=== PATIENT | female | born 1995 | race Hispanic/Latino ===

== ENCOUNTER 2020-01-04 05:36 | Emergency (ER) | payer SELFPAY ==
--- NOTE | 2020-01-04 07:05 | ER ---
Nurse's Notes [facility] Name: Citlaly Vega Age: 24 yrs Sex: Female : 1995 Arrival Date: 01/04/2020 Time: 05:48 Bed 5 Private MD: Diagnosis: Viral infection, unspecified Presentation: 01/03 06:09 Chief complaint: Patient states: fever, cough, sore throat and diarrhea x 1 week. aa1 Coronavirus screen: The patient has NOT traveled to a country currently being monitored by the [facility] within the last 14 days. Proceed with normal triage procedures. Ebola Screen: Patient denies exposure to infectious person. Patient denies travel to an Ebola-affected area in the 21 days before illness onset. Initial Sepsis Screen: Does the patient meet any 2 criteria? No. Patient's initial sepsis screen is negative. Does the patient have a suspected source of infection? No. Patient's initial sepsis screen is negative. Risk Assessment: Do you want to hurt yourself or someone else? Patient reports no desire to harm self or others. Care prior to arrival: None. Transition of care: patient was not received from another setting of care. 06:09 Method Of Arrival: Ambulatory aa1 06:09 Acuity: ROHIT 4 aa1 Triage Assessment: 06:11 General: Appears in no apparent distress. comfortable, Behavior is calm, cooperative, aa1 appropriate for age. 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 - Social history:: Smoking status: Patient denies any tobacco usage or history of. Screenin:16 Abuse screen: Denies threats or abuse. Nutritional screening: No deficits noted. ea Tuberculosis screening: No symptoms or risk factors identified. Fall Risk None identified. Assessment: 06:15 General: Appears in no apparent distress. Behavior is calm, cooperative, appropriate ea for age. Pain: Complains of pain in left aspect of posterior pharynx and right aspect of posterior pharynx. Neuro: Level of Consciousness is awake, alert, obeys commands, Oriented to person, place, time. Respiratory: Airway is patent Respiratory effort is even, unlabored, Respiratory pattern is regular, symmetrical. GI: Abdomen is non-distended, Parent/caregiver reports the patient having diarrhea. Derm: Skin is pink, warm \T\ dry. 07:10 Reassessment: Patient and/or family updated on plan of care and expected duration. Pain ea level reassessed. Patient is alert, oriented x 3, equal unlabored respirations, skin warm/dry/pink. Discharge instruction given to patient, verbalized the understanding of instruction. Pt left ED ambulatory accompanied by family. Vital Signs: 06:09 BP 101 / 74; Pulse 61; Resp 18; Temp 97.9; Pulse Ox 100% on R/A; Weight 52.16 kg; aa1 Height 5 ft. 0 in. (152.40 cm); Pain 7/10; 06:09 Body Mass Index 22.46 (52.16 kg, 152.40 cm) aa1 ED Course: 05:48 Patient arrived in ED. es 06:06 Chandler Tompkins PA is PHCP. jr8 06:06 Moreno Shea MD is Attending Physician. jr8 06:10 Triage completed. aa1 06:11 Patient placed in an exam room, on a stretcher. aa1 06:15 Milla Hilario RN is Primary Nurse. ea 06:16 Patient has correct armband on for positive identification. Bed in low position. ea 07:08 No provider procedures requiring assistance completed. Patient did not have IV access ea during this emergency room visit. Administered Medications: No medications were administered Outcome: 07:05 Discharge ordered by . jr8 07:11 Discharged to home ambulatory, with family. ea 07:11 Condition: stable 07:11 Discharge instructions given to patient, Instructed on discharge instructions, follow up and referral plans. medication usage, Demonstrated understanding of instructions, follow-up care, medications, Prescriptions given X 2. 07:11 Patient left the ED. ea Signatures: Adelina Trivedi, RN RN aa1 Mariah Vieira Chandler Tompkins PA PA jr8 Milla Hilario RN RN ea
--- NOTE | 2020-01-04 07:05 | EDPHYS ---
Physician Documentation [facility] Name: Citlaly Vega Age: 24 yrs Sex: Female : 1995 Arrival Date: 01/04/2020 Time: 05:48 Bed 5 Private MD: ED Physician Moreno Shea HPI: 01/03 06:39 This 24 yrs old Female presents to ER via Ambulatory with complaints of Cough, jr8 Fever, Diarrhea, Chest Congestion. 06:39 The patient or guardian reports cough, that is intermittent, described as mild, with no jr8 sputum. Onset: The symptoms/episode began/occurred gradually, 1 week(s) ago. Severity of symptoms: At their worst the symptoms were mild, in the emergency department the symptoms are unchanged. Modifying factors: The symptoms are alleviated by nothing, the symptoms are aggravated by nothing. Associated signs and symptoms: Pertinent positives: rhinorrhea, sore throat. The patient has not experienced similar symptoms in the past. The patient has not recently seen a physician. 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 - Social history:: Smoking status: Patient denies any tobacco usage or history of. ROS: 06:39 Eyes: Negative for injury, pain, redness, and discharge, Neck: Negative for injury, jr8 pain, and swelling, Cardiovascular: Negative for chest pain, palpitations, and edema, Abdomen/GI: Negative for abdominal pain, nausea, vomiting, diarrhea, and constipation, Back: Negative for injury and pain, MS/Extremity: Negative for injury and deformity, Skin: Negative for injury, rash, and discoloration, Neuro: Negative for headache, weakness, numbness, tingling, and seizure. 06:39 Constitutional: Positive for fever. 06:39 ENT: Positive for rhinorrhea, sinus congestion, sore throat. 06:39 Respiratory: Positive for cough, with no reported sputum, Negative for shortness of breath, sputum production, wheezing. Exam: 06:39 Eyes: Pupils equal round and reactive to light, extra-ocular motions intact. Lids and jr8 lashes normal. Conjunctiva and sclera are non-icteric and not injected. Cornea within normal limits. Periorbital areas with no swelling, redness, or edema. Neck: Trachea midline, no thyromegaly or masses palpated, and no cervical lymphadenopathy. Supple, full range of motion without nuchal rigidity, or vertebral point tenderness. No Meningismus. Cardiovascular: Regular rate and rhythm with a normal S1 and S2. No gallops, murmurs, or rubs. Normal PMI, no JVD. No pulse deficits. Respiratory: Lungs have equal breath sounds bilaterally, clear to auscultation and percussion. No rales, rhonchi or wheezes noted. No increased work of breathing, no retractions or nasal flaring. Abdomen/GI: Soft, non-tender, with normal bowel sounds. No distension or tympany. No guarding or rebound. No evidence of tenderness throughout. Back: No spinal tenderness. No costovertebral tenderness. Full range of motion. Skin: Warm, dry with normal turgor. Normal color with no rashes, no lesions, and no evidence of cellulitis. MS/ Extremity: Pulses equal, no cyanosis. Neurovascular intact. Full, normal range of motion. Neuro: Awake and alert, GCS 15, oriented to person, place, time, and situation. Cranial nerves II-XII grossly intact. Motor strength 5/5 in all extremities. Sensory grossly intact. Cerebellar exam normal. Normal gait. 06:39 ENT: Exam is negative for earache, ear discharge, TM abnormalities, nasal discharge, Mouth: Lips: moist, Oral mucosa: pink and intact, moist, Gums: pink, Tongue: is moist, Posterior pharynx: Airway: patent, Tonsils: with erythema, no exudate, no ulcerations, Uvula: midline, non-edematous, no erythema, swelling, is not appreciated, erythema, that is mild. Vital Signs: 06:09 BP 101 / 74; Pulse 61; Resp 18; Temp 97.9; Pulse Ox 100% on R/A; Weight 52.16 kg; aa1 Height 5 ft. 0 in. (152.40 cm); Pain 7/10; 06:09 Body Mass Index 22.46 (52.16 kg, 152.40 cm) aa1 MDM: 06:07 Patient medically screened. jr8 06:39 Data reviewed: vital signs, nurses notes, lab test result(s). Data interpreted: Pulse jr8 oximetry: on room air is 100 %. Interpretation: normal. Counseling: I had a detailed discussion with the patient and/or guardian regarding: the historical points, exam findings, and any diagnostic results supporting the discharge/admit diagnosis, lab results, the need for outpatient follow up, a family practitioner, to return to the emergency department if symptoms worsen or persist or if there are any questions or concerns that arise at home. 01/03 06:17 Order name: Strep; Complete Time: 07:04 ea 01/03 06:57 Order name: Throat Culture EDMS Administered Medications: No medications were administered Disposition: 01/04 04:29 Co-signature as Attending Physician, Moreno Shea MD I agree with the assessment and tw4 plan of care. Disposition: 01/04/20 07:05 Discharged to Home. Impression: Viral infection, unspecified. - Condition is Stable. - Discharge Instructions: Antibiotic Resistance, Viral Respiratory Infection. - Prescriptions for Prednisone 20 mg Oral Tablet - take 1 tablet by ORAL route once daily for 5 days; 5 tablet. Tessalon Perles 100 mg Oral Capsule - take 1 capsule by ORAL route every 8 hours As needed; 15 capsule. - Medication Reconciliation Form, Thank You Letter, Antibiotic Education, Prescription Opioid Use form. - Follow up: Private Physician; When: 5 - 6 days; Reason: Recheck today's complaints, Continuance of care, Re-evaluation by your physician. - Problem is new. - Symptoms have improved. Signatures: Dispatcher [employer] Adelina Trivedi RN RN aa1 Chandler Tompkins PA PA jr8 Milla Hilario RN RN ea Wadley, Terrence, MD MD tw4 Corrections: (The following items were deleted from the chart) 01/03 07:11 07:05 01/04/2020 07:05 Discharged to Home. Impression: Viral infection, unspecified. ea Condition is Stable. Forms are Medication Reconciliation Form, Thank You Letter, Antibiotic Education, Prescription Opioid Use. Follow up: Private Physician; When: 5 - 6 days; Reason: Recheck today's complaints, Continuance of care, Re-evaluation by your physician. Problem is new. Symptoms have improved. jr8
[2020-01-04 07:22] VITALS: BP 101/74; TEMP 97.9; O2SAT 100
== END 2020-01-04 07:11 | disposition home or self-care (01) ==
LOC: ER 05:36
DX: B34.9 Viral infection, unspecified (principal)
CPT/HCPCS: 87070; 87081; 99282

== ENCOUNTER 2020-03-02 11:07 | Emergency (ER) | payer SELFPAY ==
[2020-03-02] MEDS ORDERED: PROMETHAZINE INJ 25 MG/ML AMP ONE (12:20)
--- NOTE | 2020-03-02 13:46 | EDPHYS ---
Physician Documentation [facility] Name: Citlaly Vega Age: 24 yrs Sex: Female : 1995 Arrival Date: 03/02/2020 Time: 11:25 Bed 14 Private MD: ED Physician Colin Pryor HPI: 03/02 11:42 This 24 yrs old Female presents to ER via EMS with complaints of Anxiety. jmm 11:42 The patient presents to the emergency department with anxiety. Onset: The jmm symptoms/episode began/occurred acutely, 1.5 hour(s) ago. This is a 24 year old female with no chronic medical conditions that presents to the ED with complaints of nausea, anxiety, chest tightness. Patient states this occurred after eating breakfast. Patient states having 1 previous episode in the past. . Historical: - Allergies: 11:27 No Known Allergies; bp - Home Meds: 11:27 None [Active]; bp - PMHx: 11:27 None; bp - Immunization history:: Adult Immunizations up to date. - Social history:: Smoking status: Patient denies any tobacco usage or history of. ROS: 11:42 Constitutional: Negative for fever, chills, and weight loss, Cardiovascular: Negative jmm for chest pain, palpitations, and edema, Respiratory: Negative for shortness of breath, cough, wheezing, and pleuritic chest pain. 11:42 Abdomen/GI: Positive for abdominal pain, nausea. 11:42 All other systems are negative. Exam: 11:42 Constitutional: This is a well developed, well nourished patient who is awake, alert, jmm and in no acute distress. Head/Face: atraumatic. Eyes: EOMI, no conjunctival erythema appreciated ENT: Moist Mucus Membranes Neck: Trachea midline, Supple Chest/axilla: Normal chest wall appearance and motion. Cardiovascular: Regular rate and rhythm. No edema appreciated Respiratory: Normal respirations, no respiratory distress appreciated Abdomen/GI: Non distended, soft Back: Normal ROM Skin: General appearance color normal MS/ Extremity: Moves all extremities, no obvious deformities appreciated, no edema noted to the lower extremities Neuro: Awake and alert, normal gait Psych: Behavior is normal, Mood is normal, Patient is cooperative and pleasant Vital Signs: 11:25 BP 130 / 90; Pulse 110; Resp 18; Temp 97.4; Pulse Ox 99% ; Weight 56.7 kg; Height 5 ft. bp (152.40 cm); 11:28 BP 109 / 71; Pulse 109; Resp 16; Pulse Ox 100% ; bp 13:30 BP 111 / 69; Pulse 91; Resp 17; Pulse Ox 100% ; bp 14:22 BP 105 / 63; Pulse 85; Resp 16; Temp 97.5; Pulse Ox 100% ; bp 11:25 Body Mass Index 24.41 (56.70 kg, 152.40 cm) bp MDM: 11:25 Patient medically screened. [facility] 13:44 Data reviewed: vital signs, nurses notes. Counseling: I had a detailed discussion with ayde the patient and/or guardian regarding: the historical points, exam findings, and any diagnostic results supporting the discharge/admit diagnosis, the need for outpatient follow up, to return to the emergency department if symptoms worsen or persist or if there are any questions or concerns that arise at home. ED course: Patient states feeling much better. Able to tolerate PO. Patient is advised to follow up with pcp and is otherwise given strict return precautions. Patient understood and agrees with the plan of care. . 03/02 12:23 Order name: PO challenge; Complete Time: 14:17 [facility] Administered Medications: 12:00 Drug: Promethazine 25 mg Route: IM; Site: left gluteus; bp 14:17 Follow up: Response: Nausea is decreased bp Disposition: 03/03 09:29 Co-signature as Attending Physician, Colin Pryor MD I agree with the assessment and [facility] plan of care. Disposition: 03/02/20 13:45 Discharged to Home. Impression: Anxiety disorder, unspecified. - Condition is Stable. - Discharge Instructions: Panic Attacks, Panic Attacks, [id number]. - Medication Reconciliation Form, Thank You Letter, Antibiotic Education, Prescription Opioid Use form. - Follow up: Private Physician; When: 2 - 3 days; Reason: Recheck today's complaints, Continuance of care, Re-evaluation by your physician. Signatures: Colin Pryor MD MD cha Mickail, Joel, PA PA jmm Peltier, Brian, RN RN bp Corrections: (The following items were deleted from the chart) 03/02 14:22 13:45 03/02/2020 13:45 Discharged to Home. Impression: Anxiety disorder, unspecified. bp Condition is Stable. Forms are Medication Reconciliation Form, Thank You Letter, Antibiotic Education, Prescription Opioid Use. Follow up: Private Physician; When: 2 - 3 days; Reason: Recheck today's complaints, Continuance of care, Re-evaluation by your physician. ayde
--- NOTE | 2020-03-02 13:46 | ER ---
Nurse's Notes [facility] Name: Citlaly Vega Age: 24 yrs Sex: Female : 1995 Arrival Date: 03/02/2020 Time: 11:25 Bed 14 Private MD: Diagnosis: Anxiety disorder, unspecified Presentation: 03/02 11:25 Chief complaint: EMS states: CALLED EMS FROM [facility] FOR SHORTNESS OF bp BREATH AND ANXIETY. Coronavirus screen: Proceed with normal triage. Ebola Screen: No symptoms or risks identified at this time. Initial Sepsis Screen: Does the patient meet any 2 criteria? HR > 90 bpm. No. Patient's initial sepsis screen is negative. Does the patient have a suspected source of infection? No. Patient's initial sepsis screen is negative. Risk Assessment: Do you want to hurt yourself or someone else? Patient reports no desire to harm self or others. Onset of symptoms is unknown. Care prior to arrival: Glucose check: 145. 11:25 Method Of Arrival: EMS: [facility] bp 11:25 Acuity: ROHIT 4 bp Triage Assessment: :27 General: Appears in no apparent distress. comfortable, Behavior is cooperative, bp appropriate for age, anxious. Pain: Denies pain. EENT: No deficits noted. Neuro: No deficits noted. Cardiovascular: No deficits noted. Respiratory: Reports shortness of breath Airway is patent Respiratory effort is even, unlabored, Respiratory pattern is regular, symmetrical, Breath sounds are clear bilaterally. GI: No signs and/or symptoms were reported involving the gastrointestinal system. : No signs and/or symptoms were reported regarding the genitourinary system. Derm: No deficits noted. Musculoskeletal: No deficits noted. Historical: - Allergies: 11: No Known Allergies; bp - Home Meds: 11: None [Active]; bp - PMHx: 11:27 None; bp - Immunization history:: Adult Immunizations up to date. - Social history:: Smoking status: Patient denies any tobacco usage or history of. Screenin: Abuse screen: Denies threats or abuse. Denies injuries from another. Nutritional bp screening: No deficits noted. Tuberculosis screening: No symptoms or risk factors identified. Fall Risk None identified. Assessment: :28 General: SEE TRIAGE NOTE. bp 13:30 Reassessment: PO CHALLENGE SUCCESSFUL. bp 14:16 Reassessment: PT D/C HOME AMBULATORY, DX WITH ANXIETY. bp Vital Signs: 11:25 BP 130 / 90; Pulse 110; Resp 18; Temp 97.4; Pulse Ox 99% ; Weight 56.7 kg; Height 5 ft. bp (152.40 cm); 11:28 BP 109 / 71; Pulse 109; Resp 16; Pulse Ox 100% ; bp 13:30 BP 111 / 69; Pulse 91; Resp 17; Pulse Ox 100% ; bp 14:22 BP 105 / 63; Pulse 85; Resp 16; Temp 97.5; Pulse Ox 100% ; bp 11:25 Body Mass Index 24.41 (56.70 kg, 152.40 cm) bp ED Course: 11:25 Patient arrived in ED. bp 11:25 Alan Edouard PA is PHCP. jmm 11:25 Colin Pryor MD is Attending Physician. jmm 11:27 Triage completed. bp 11:27 Arm band placed on. bp 11:28 Patient has correct armband on for positive identification. Bed in low position. Call bp light in reach. Side rails up X2. 11:57 Ian Batista, RN is Primary Nurse. bp 14:16 No provider procedures requiring assistance completed. Patient did not have IV access bp during this emergency room visit. Administered Medications: 12:00 Drug: Promethazine 25 mg Route: IM; Site: left gluteus; bp 14:17 Follow up: Response: Nausea is decreased bp Outcome: 13:45 Discharge ordered by MD. jmm 14:16 Discharged to home ambulatory. bp 14:16 Condition: stable 14:16 Discharge instructions given to patient, Instructed on discharge instructions, follow up and referral plans. Demonstrated understanding of instructions, follow-up care. 14:22 Patient left the ED. bp Signatures: Alan Edouard PA PA jmm Peltier, Brian, RN RN bp
[2020-03-02 14:37] VITALS: O2SAT 100
[2020-03-02 14:39] VITALS: BP 105/63; TEMP 97.5
== END 2020-03-02 14:22 | disposition home or self-care (01) ==
LOC: ER 11:07
DX: F41.9 Anxiety disorder, unspecified (principal)
CPT/HCPCS: 96372; 99283; J2550